=== PATIENT | female | born 1950 | race Caucasian/White ===

== ENCOUNTER → 2023-05-23 13:40 | Outpatient (REF) | payer MEDICARE, BC, SELFPAY | LOC: RAD 13:40 | PROVIDERS: ATTENDING PHYSICIAN Physician Assistant Medical | DX: L74.510 Primary focal hyperhidrosis, axilla (principal) | CPT/HCPCS: 71046 ==

== ENCOUNTER → 2023-06-10 12:42 | Outpatient (REF) | payer MEDICARE, BC, SELFPAY | LOC: HWRAD 12:42 | PROVIDERS: ATTENDING PHYSICIAN Physician Assistant Medical | DX: R10.30 Lower abdominal pain, unspecified (principal); R59.0 Localized enlarged lymph nodes; R61 Generalized hyperhidrosis | CPT/HCPCS: 71260; 74177; Q9967 ==

== ENCOUNTER → 2023-07-17 07:18 | Outpatient (REF) | payer MEDICARE, BC, SELFPAY | LOC: HWRAD 07:18 | PROVIDERS: ATTENDING PHYSICIAN Physician Assistant Medical | DX: K82.4 Cholesterolosis of gallbladder (principal) | CPT/HCPCS: 76700 ==

== ENCOUNTER → 2023-07-30 07:07 | Outpatient (REF) | payer MEDICARE, BC, SELFPAY | LOC: DHCBC/DCA 07:07 | PROVIDERS: ATTENDING PHYSICIAN Internal Medicine Cardiovascular Disease; FAMILY PHYSICIAN Physician Assistant Medical | DX: R00.2 Palpitations (principal); R07.89 Other chest pain | CPT/HCPCS: 78452; 93017; A9500 ==

== ENCOUNTER → 2023-10-02 13:09 | Outpatient (REF) | payer MEDICARE, BC, SELFPAY | LOC: WDC 13:09 | PROVIDERS: ATTENDING PHYSICIAN Physician Assistant Medical | DX: M85.80 Other specified disorders of bone density and structure, unspecified site (principal); Z12.31 Encounter for screening mammogram for malignant neoplasm of breast; M81.0 Age-related osteoporosis without current pathological fracture | CPT/HCPCS: 77063; 77067; 77080 ==

== ENCOUNTER 2024-06-23 06:25 | Day surgery (SDC) | payer MEDICARE, BC, SELFPAY | END 2024-06-23 10:07 | disposition home or self-care (01) | LOC: GI 06:25 | PROVIDERS: ATTENDING PHYSICIAN Internal Medicine Gastroenterology | DX: Z12.11 Encounter for screening for malignant neoplasm of colon (principal); K64.8 Other hemorrhoids; K57.30 Diverticulosis of large intestine without perforation or abscess without bleeding; R12 Heartburn; K22.89 Other specified disease of esophagus; K31.7 Polyp of stomach and duodenum; K31.89 Other diseases of stomach and duodenum; K63.5 Polyp of colon; D12.2 Benign neoplasm of ascending colon; Z86.0100 Personal history of colon polyps, unspecified | CPT/HCPCS: 45385; 45381; 45380; 43239; 88305; 88342 ==

== ENCOUNTER → 2024-10-07 14:40 | Outpatient (REF) | payer MEDICARE, BC, SELFPAY | LOC: WDC 14:40 | PROVIDERS: ATTENDING PHYSICIAN Physician Assistant Medical | DX: Z12.31 Encounter for screening mammogram for malignant neoplasm of breast (principal) | CPT/HCPCS: 77063; 77067 ==

== ENCOUNTER → 2024-12-24 10:29 | Outpatient (REF) | payer MEDICARE, BC, SELFPAY | LOC: RAD 10:29 | PROVIDERS: ATTENDING PHYSICIAN Physician Assistant Medical | DX: M54.50 Low back pain, unspecified (principal); S30.0XXA Contusion of lower back and pelvis, initial encounter | CPT/HCPCS: 72110; 72220 ==